=== PATIENT | male | born 1950 | race Caucasian/White ===

== ENCOUNTER 2023-10-10 12:37 | Outpatient (CLI) | payer MEDICARE, OTHER, SELFPAY ==
--- NOTE | ~2023-10-10 | PE_ITS ---
EXAMINATION: PET_PETPSMAST_PT DATE: 10/10/2023 15:16 INDICATION: Prostate cancer. TECHNIQUE: 8.659 mCi of piflufolastat F-18 was administered intravenously. Low dose computed tomograp hy (CT) images were acquired from the base of the brain to the proximal thighs for attenuation correc tion and anatomic localization. Automated exposure control was employed. Dose-length product (DLP) wa s 787 mGy-cm. Positron emission tomography (PET) images were acquired in the same distribution. COMPARISON: CT abdomen and pelvis 05/26/2016 FINDINGS: Head/neck: There is mucosal thickening in the paranasal sinuses. There are no pathologically enlarged lymph nodes. There is a 10 mm nodule in right thyroid lobe with maximum SUV of 6.0. Chest: There is no pneumonia or pleural effusion. The heart size is normal. There are coronary artery calcifications. There is mild bilateral gynecomastia. Abdomen/pelvis/proximal thighs: The liver, gallbladder, spleen, pancreas, adrenal glands, and kidneys are normal. The prostate is moderately enlarged. There is increased activity in the prostate with ma ximum SUV of 9.4. There are no dilated loops of bowel. There is calcified atherosclerosis of the aort a and many of the other arteries. There are no pathologically enlarged lymph nodes. There is no free intraperitoneal fluid. There is a left inguinal hernia containing fat. There is no osseous metastatic disease. IMPRESSION: 1. Moderately enlarged prostate with increased activity, consistent with primary malignancy. 2. 10 mm nodule in right lower lobe with increased activity. Isolated metastatic disease to the thyro id would be unusual. Ultrasound-guided fine needle aspiration is recommended. Reviewed, dictated and finalized at location A. [facility] IMMUNOLOGIST IMPRESSION: 1. Moderately enlarged prostate with increased activity, consistent with primar y malignancy. 2. 10 mm nodule in right lower lobe with increased activity. Isolated metastati c disease to the thyroid would be unusual. Ultrasound-guided fine needle aspira tion is recommended.
== END 2023-10-10 12:38 | disposition home or self-care (01) ==
PROVIDERS: PCP Internal Medicine; Visit Provider Urology
DX: C61 Malignant neoplasm of prostate (principal)
CPT/HCPCS: 78815; A9595

== ENCOUNTER 2025-04-23 07:54 | Outpatient (CLI) | payer MEDICARE, OTHER, SELFPAY ==
--- OUTSIDE RECORDS SUMMARY | 2000-01-02 11:15 | XMS_ITS | Continuity of Care Document ---
Author Organization [facility] Address [address] [place] [address] [address] [place] [address] Phone Care Team Providers Care Caponizer Name Role Phone Valentine Ash Unavailable Unavailable Advance Directives Directive Yes / No Effective Date File Name No Information Encounters Encounter Description Practice Location Reason(s) For Visit Diagnoses Date Provider Providers Copied on Encounter [facility], [address], [place], [place], [id number], [place] tel:[phone] [facility] No Information May-0 8-200 0 Nilsa Grijalva. [address] , [address], [place], [address], [place]. tel:[phone] Family History Family Member Type Diagnosis Age At Onset No Information Payers Payer name Insurance type Covered green party ID Authoriza tion(s) [employer] SOI CI [id number] Social History Type Description Quantity Date Captured Comments Sex Male Smoking Status No Information Chief Complaint And Reason For Visit No Information Reason For Referral Reason For Referral No Information History Of Present Illness Encounter Date Complaint History Of Prese nt Illness No Information Functional Status Date Functional Assessmen t No Information Instructions Date Instruction Additional Infor mation No Information Assessments Type Assessment Date No Information Patient Care Teams Name Effective Dates (start - stop) Status Members No Information
--- NOTE | ~2025-04-23 | CT_ITS ---
EXAMINATION: CT lung screening DATE: 04/23/2025 08:44 INDICATION: Personal history of nicotine dependence TECHNIQUE: Computed tomography (CT) of the chest was performed without intravenous contrast. The dose-length product was 135.98 mGy-cm. COMPARISON: PET/CT 10/10/2023; CT abdomen and pelvis 06/11/2011 FINDINGS: Stable 10 mm right thyroid lobe nodule. No enlarged mediastinal or hilar lymph nodes. Heart is unenlarged. There are coronary artery calcifications. Thoracic aorta is partially calcified but is not aneurysmal. Tracheobronchial tree is patent. No pneumothorax. No pleural effusion. No focal pulmonary consolidation. There are a few small reticular and bandlike opacities in the lower lungs likely atelectasis or scarring. Multilevel mild change in the visualized spine. IMPRESSION: 1. Lung-RADS category 2: Benign appearance or behavior. Continue annual screening with noncontrast low-dose chest CT in 12 months. 2. Stable 10 mm right thyroid nodule. Reviewed, dictated and finalized at location Q. IMPRESSION: 1. Lung-RADS category 2: Benign appearance or behavior. Continue annual screeni ng with noncontrast low-dose chest CT in 12 months. 2. Stable 10 mm right thyroid nodule.
--- NOTE | ~2025-04-23 | US_ITS ---
EXAMINATION: US aorta DATE: 04/24/2025 9:09 CDT INDICATION: Screening for aortic aneurysm. Hypertension. Diabetes. TECHNIQUE: Grayscale, color Doppler, and pulsed Doppler images of the aorta and common iliac arteries were obtained. COMPARISON: None. FINDINGS: The proximal aorta measures 1.9 cm greatest sagittal dimension. The mid aorta measures 2 cm greatest sagittal dimension. The distal aorta measures 1.9 cm greatest sagittal dimension. The right common internal iliac artery measures 1.5 cm. The left common iliac artery measures 1.4 cm. IMPRESSION: 1. Normal caliber aorta without aneurysm. Reviewed, dictated and finalized at location O.
--- OUTSIDE RECORDS SUMMARY | 2025-04-23 08:01 | XMS_ITS | Encounter Summary ---
Author Organization [facility] Address [address] [place] [address] Phone Care Team Providers Care Erp Pm Name Role Phone Ji Lou MD Primary Care Provider [phone] Encounter Details Date Type Department Care Team (Latest Contact Info) Description 06/09/2023 Orders Only [facility] Scanning, Provider Social History Tobacco Use Types Packs/Day Years Used Date Smoking Tobacco: Former Cigarettes 0.5 20 1 985 - 2005 Smokeless Tobacco: Never Alcohol Use Standard Drinks/Week Comments No 0 (1 standard drink = 0.6 oz pur e alcohol) AUDIT-C Answer Date Recorded Q1: How often do you have a drink containing alc ohol? Monthly or less 05/09/2022 Q2: How many drinks containi ng alcohol do you have on a typical day when you are drinking? 1 or 2 05/09/2022 Frequency of Binge Drinking Not on file 04/27 Personal Safety Answer Date Recorded Have you ever been in or are you currently in a harmful physical or emotional relationship or is someone making you feel afraid or unsafe? 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
--- OUTSIDE RECORDS SUMMARY | 2025-04-23 08:01 | XMS_ITS | Encounter Summary ---
Author Organization [facility] Address [address] [place] [address] Phone Care Team Providers Care Stone Driller Helper Name Role Phone Ji Lou MD Primary Care Provider Encounter Details Date Type Department Care Team (Latest Contact Info) Description 01/14/2025 Orders Only [facility] Scanning, Provider Social History Tobacco Use Types Packs/Day Years Used Date Smoking Tobacco: Former Cigarettes 0.5 20 1 985 - 2005 Passive Smoke Exposure: Past Smokeless Tobacco: Never Alcohol Use Standard Drinks/Week [...] on file 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 Gender Identity Male 05/15/2022 8:12 PM CDT Sexual Orientation Straight 05/15/2022 8: 12 PM CDT documented as of this encounter Plan of Treatment Not on file documented as of this encounter Procedures Procedure Name Priority Date/Time Associated Diagnosis Comments PROCEDURE - RESULT 01/14/2025 documented in this encounter Results * PROCEDURE - RESULT (01/14/2025) us Provider Scanning Final Result documented in this encounter Visit Diagnoses Not on filedocumented in this encounter Care Teams Stone Driller Helper Relationship Specialty Start Date End Date Ji Lou MD PCP - General 06/07/11 documented as of this encounter
--- OUTSIDE RECORDS SUMMARY | 2025-04-23 08:01 | XMS_ITS | Clinical Summary ---
Author Organization [facility] Address [address] [place] [address] Care Team Providers Care Sheep Shearer Name Role Phone Ji Lou MD Primary Care Provider Allergies No known active allergies Medications amLODIPine (NORVASC) 10 mg tablet Take 1 tablet (10 mg total) by mouth daily 04/17/20 22 Active escitalopram (LEXAPRO) 5 mg tablet Take 1 tablet (5 mg total) by mouth daily 03/09/20 22 Active carvediloL (COREG) 12.5 mg tablet TAKE 1 TABLET BY MOUTH TWICE DAILY IN THE MORNING AND AT BEDTIME 02/12/20 22 Active aspirin 81 mg enteric coated tablet Take 1 tablet (81 mg total) by mouth daily Active zinc 50 mg tablet Take by mouth Active furosemide (LASIX) 20 mg tablet Take 1 tablet (20 mg total) by mouth every morning 90 tablet 05/01/20 23 Active glucagon 1 mg kit Use as directed for low blood sugar. 1 kit 5 07/17/20 23 Active glucagon (Gvoke HypoPen 1-Pack) 1 mg/0.2 mL auto-injector Use as directed for hypoglycemia 2 mL 2 07/23/20 23 Active blood glucose diagnostic strip Test Blood glucose three times daily 100 strip 3 09/20/19 24 Active tirzepatide (Mounjaro) 7.5 mg/0.5 mL pen injector injection Inject 0.5 mL (7.5 mg total) under the skin every 7 days 2 mL 4 09/30/19 25 Active NovoLIN 70/30 100 unit/mL pen for injection Inject 10units w breakfast and 18 units with supper 15 mL 12/04/19 25 Active Additional Information Patient not taking.Reported on 01/28/2025 rosuvastatin (CRESTOR) 5 mg tabletIndications: Other hyperlipidemia Take 1 tablet (5 mg total) by mouth daily 90 tablet 1 12/17/19 25 026 Active ergocalciferol (VITAMIN D) 50,000 unit capsule Take 1 capsule (50,000 Units total) by mouth once a week 12 capsule 1 01/08/20 25 Active pen needle, diabetic 32 gauge x needle Use 2 times a day with insulin 100 each 01/15/20 Active canagliflozin-metf ormin (Invokamet XR) 150-500 mg tablet, IR & ER, biphasic 24hr Take 1 tablet by mouth 2 (two) times a day 180 tablet 01/29/20 25 Active lisinopriL (PRINIVIL,ZESTRIL) 40 mg tablet Take 1 tablet (40 mg total) by mouth daily 90 tablet 1 01/29/20 25 026 Active famotidine (PEPCID) 10 mg tablet Take 2 tablets (20 mg total) by mouth ultrasound technol before breakfast 30 tablet 01/29/20 25 Active insulin aspart protamine-insulin aspart 70/30 (NovoLOG 70/30 100 unit/mL) 100 unit/mL pen for injectionIndicatio ns:Type 2 diabetes mellitus with hyperglycemia, unspecified whether detention insulin use (HCC) Take 10 units for breakfast and 22 units in the evening 15 mL 03/03/20 25 Active Active Problems Problem Noted Date Diagnosed Date Type 2 diabetes mellitus with hyperglycemia 05/27 Enlarged thyroid 06/06/2024 Positive colorectal cancer screening using Colog uard test 02/07/2023 Hypercalcemia 01/10/2014 Overview (12/02/2016): HYPERCALCEMIA Hyperparathyroidism 06/10/2011 Overview (11/29/2016): HYPERPARATHYROIDISM NOS Encounters Date Type Department Care Team Description 03/03/2025 Orders Only [facility] Medicine Endocrinology Metabolism and Lipid [address] [place] [address] [place] [address] OliverDonovan mooreelleALESSIO Type 2 diabetes mellitus with hyperglycemia, unspecified whether dedicated intermodal truck driver insulin use (HCC) 01/28/2025 10:00 AM CDT Office Visit [facility] Medicine Endocrinology Metabolism and Lipid [address] [place] [address] Britany Lozano NP Type 2 diabetes mellitus with hyperglycemia, with long-term current use of insulin (HCC) (Primary Dx); Enlarged thyroid; Hypercalcemia from Last 3 Months Surgical History Surgery Date Site/Laterality Comments INGUINAL HERNIA REPAIR 08/27/1987 - 08/26/1988 Right COLONOSCOPY 5-6 yrs ago COLONOSCOPY COLONOSCOPY 02/12/2023 Medical History Medical History Date Comments Type 2 diabetes mellitus Diabete s type 2 Hypertension Hypertension Depression Sleep apnea Family History Medical History Relation Name Comments Colon cancer Father Hypertension Father Stroke Father Diabetes type II Maternal Grandmother Diabetes type II Mother Hypertension Mother Diabetes type II Sister Relation Name Status Comments Father Maternal Grandmother Mother Sister Alive Social History Tobacco Use Types Packs/Day Years [...] on file Legal 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 Gender Identity Male 05/15/2022 8:12 PM CDT Sexual Orientation Straight 05/15/2022 8: 12 PM CDT Obstetrics History Last Filed Vital Signs Vital Sign Reading Time Taken Comments Blood Pressure 142/81 01/28/2025 9:56 AM CDT Pulse 71 01/28/2025 9:56 AM CDT Temperature 36.8 C (98.2 F) 01/28/2025 9:56 AM CDT Respiratory Rate 18 02/12/2023 1:05 PM CDT Oxygen Saturation 100% 01/28/2025 9:56 AM CDT Inhaled Oxygen Concentration - - Weight 87.8 kg (193 lb 8 oz) 01/28/2025 9:56 AM CDT Height 180.3 cm (5' 11) 01/28/2025 9:56 AM CDT Body Mass Index 26.99 01/28/2025 9:56 AM CDT Plan of Treatment Health Maintenance Due Date Last Done Comments Depression Screening 1950 Hepatitis C Screening 1950 Dilated Eye Exam 1950 Foot Exam 1950 DTaP/Tdap/Td Vaccine (1 - Tdap) 02/24/1963 Hepatitis B Screening 02/24/1970 Pneumococcal vaccine 65+ (2 of 2 - PCV) 08/14/2013 08/14/2012 Zoster Vaccine (2 of 3) 12/09/2013 10/14/2013 Abdominal Aortic Aneurysm (A AA) Screen 02/24/2017 Well Visit 65+ 02/24/2017 Fall Risk Assessment 02/13/2024 02/12/2023 Covid-19 Vaccine (3 - 2023-2 5 season) 2024 06/06/2021, 11/19/2020 Influenza Vaccine (#1) 2025 06/23/2012 Hemoglobin A1C 07/30/2025 01/28/2025, 02/0 11/2024, 06/06/2024, Additional history exists Albumin Creatinine Ratio, Urine 08/15/2025 , 08/22/2023 Lipid Panel 08/15/2025 08/15/2024, 07/28, 01/18/2023 eGFR 08/15/2025 08/15/2024, 07/28, 01/18/2023 Colon Cancer Screening-Colonoscopy 02/12/20332022 Procedures Procedure Name Priority Date/Time Associated Diagnosis Comments POCT HEMOGLOBIN A1C Routine 01/28/2025 1 0:11 AM CDT Type 2 diabetes mellitus with hyperglycemia, with long-term current use of insulin (HCC) COMPREHENSIVE METABOLIC PANEL Routine 08/15/2024 8:45 AM TECHNICAL SUPPORT ANALYST Type 2 diabetes mellitus with hyperglycemia, unspecified whether detention insulin use (HCC) LIPID PANEL Routine 08/15/2024 8:45 AM TECHNICAL SUPPORT ANALYST Type 2 diabetes mellitus with hyperglycemia, unspecified whether dedicated intermodal truck driver insulin use (HCC) ALBUMIN CREATININE RATIO, URINE Routine 08/15/2024 8:45 AM TECHNICAL SUPPORT ANALYST Type 2 diabetes mellitus with hyperglycemia, unspecified whether dedicated intermodal truck driver insulin use (HCC) COLONOSCOPY 02/12/2023 10:55 AM CDT from Last 3 Months or Most Recently Relevant to Health Maintenance Results * (ABNORMAL) POCT hemoglobin A1c (01/28/2025 10:11 AM CDT) Hemoglobin A1C, POC 6.4(A) 4.0 - 5.6 % Blood 01/28/2025 10:1 1 AM CDT Britany Lozano NP POINT OF CARE TEST ORDERAB LES Final Result * (ABNORMAL) Albumin Creatinine Ratio, Urine (08/15/2024 8:45 AM TECHNICAL SUPPORT ANALYST) Creatinine, ur 22 20 - 320 mg/dL [facility] Microalbumin, ur 0.9 See Note: mg/dL [facility] Comment: Reference Range: Reference Range Not established Microalbumin/creat ratio 41(H) <30 mg/g creat [facility] Comment: The ADA defines abnormalities in albumin excretion as follows: Albuminuria Category Result (mg/g creatinine) Normal to Mildly increased <30 Moderately increased 30-299 Severely increased > OR = 300 The ADA recommends that at least two of three specimens collected within a 3-6 month period be abnormal before considering a patient to be within a diagnostic category. Urine 08/15/2024 8:45 AM TECHNICAL SUPPORT ANALYST 08/15/2024 8:45 AM TECHNICAL SUPPORT ANALYST Josefinard Mayfieldtina Kapoor DO LAB URINE ORDERABLES Fi nal Result Performing Organization Address [facility]/ZIP Co de Phone Number DANIELLE [facility] [address] [place] [address] * Lipid panel (08/15/2024 8:45 AM TECHNICAL SUPPORT ANALYST) Cholesterol 152 <200 mg/dL [facility] HDL 76 > OR = 40 mg/dL [facility] Triglycerides 111 <150 mg/dL [facility] LDL 57 mg/dL (calc) [facility] Comment: Reference range: <100 Desirable range <100 mg/dL for primary prevention; <70 mg/dL for patients with CHD or diabetic patients with > or = 2 CHD risk factors. LDL-C is now calculated using the Cruz calculation, which is a validated novel method providing better accuracy than the Friedewald equation in the estimation of LDL-C. Darrel SIMENTAL et al. ANTHONY. 2013;310(19): 9359-1379 (http://education.RiverOne/faq/YDN129) Chol/HDL ratio 2.0 <5.0 (calc) [facility] Non-HDL, (LDL+VLDL) 76 <130 mg/dL (calc) [facility] Comment: For patients with diabetes plus 1 major ASCVD risk factor, treating to a non-HDL-C goal of <100 mg/dL (LDL-C of <70 mg/dL) is considered a therapeutic option. Blood 08/15/2024 8:45 AM TECHNICAL SUPPORT ANALYST 08/15/2024 8:45 AM TECHNICAL SUPPORT ANALYST Josefina Kapoor DO LAB BLOOD ORDERABLES Fi nal Result Performing Organization Address [facility] Co de Phone Number [facility] [address] [address] [address] * (ABNORMAL) Comprehensive metabolic panel (08/15/2024 8:45 AM TECHNICAL SUPPORT ANALYST) Glucose 146(H) 65 - 99 mg/dL [facility] Comment: Fasting reference interval For someone without known diabetes, a glucose value >125 mg/dL indicates that they may have diabetes and this should be confirmed with a follow-up test. BUN 16 7 - 25 mg/dL [facility] Creatinine 1.15 0.70 - 1.28 mg/dL [facility] eGFR 68 > OR = 60 mL/min/1.7 3m2 [facility] BUN/creat ratio SEE NOTE: 6 - 22 (calc) [facility] Comment: Not Reported: BUN and Creatinine are within reference range. Sodium 141 135 - 146 mmol/L [facility] Potassium, pl 4.4 3.5 - 5.3 mmol/L [facility] Chloride 104 98 - 110 mmol/L [facility] CO2 28 20 - 32 mmol/L [facility] Calcium 11.7(H) 8.6 - 10.3 mg/dL [facility] Protein, sr 8.0 6.1 - 8.1 g/dL [facility] Albumin 5.0 3.6 - 5.1 g/dL [facility] GLOBULIN 3.0 1.9 - 3.7 g/dL (calc) [facility] Alb/glob ratio 1.7 1.0 - 2.5 (calc) [facility] Bilirubin, total 0.7 0.2 - 1.2 mg/dL [facility] Alk phos 85 35 - 144 U/L [facility] AST 25 10 - 35 U/L [facility] ALT (SGPT) 28 9 - 46 U/L [facility] Blood 08/15/2024 8:45 AM TECHNICAL SUPPORT ANALYST 08/15/2024 8:45 AM TECHNICAL SUPPORT ANALYST us Josefina Kapoor DO LAB BLOOD ORDERABLES Fi nal Result [facility] [address] [address] [place] [address] * COLONOSCOPY (02/12/2023 10:55 AM CDT) Anatomical Region Laterality Modality Other Narrative Procedure Note Andres Harman MD - 02/12/2023 10:55 AM CDT [facility] Patient Name: Cody Hensley Procedure Date: 02/12/2023 10:55 AM Date of : 1950 Admit Type: Outpatient Age: 72 Gender: Male Attending MD: Andres Harman M.D. Room: [facility] 2 Note Status: Finalized Patient Profile: Refer to note in patient chart for documentation of history and physical. Procedure: Colonoscopy Indications: Family history of colon cancer in a first-degree relative before age 60 years, Last colonoscopy 5years ago, Positive Cologuard test Referring MD: Ji Lou M.D. Providers: Andres Harman M.D. Impression: - Hemorrhoids found on perianal exam. - The entire examined colon is normal. - No specimens collected. Recommendation: - Discharge patient to home. - Resume previous diet. - Continue present medications. - Repeat colonoscopy in 5 years for surveillance. - Return to primary care physician as previously scheduled. Medicines: Propofol per Anesthesia Complications: No immediate complications. Estimated Blood Loss: Estimated blood loss: none. Procedure: Pre-Anesthesia Assessment: - This assessment was completed [Time ofAssessment] prior to the administration of sedation. The benefits, risks and alternatives of theprocedure and sedation were discussed and informed consentwas obtained. All questions were answered. Please referto the signed informed consent document in the medical record. The bowel preparation used was Miralax via single dose instruction. The bowel preparation used was bisacodyl tablets via single dose instruction.The scope was passed under direct vision. TheColonoscope [id number] was introduced through the anus and advanced to the the cecum, identified by appendiceal orifice and ileocecal valve. The colonoscopy was performed without difficulty. The patient tolerated the procedure well. The qualityof the bowel preparation was adequate to identifypolyps 6 mm and larger in size. The ileocecal valve, appendiceal orifice, and rectum werephotographed. Findings: Hemorrhoids were found on perianal exam. The colon (entire examined portion) appeared normal. Electronically signed by Andres Harman M.D. Andres Harman M.D. 02/12/2023 12:28:43 PM Number of Addenda: 0 Note Initiated On: 02/12/2023 10:55 AM Procedure Code(s): --- Professional --- 90143, Colonoscopy, flexible; diagnostic, including collection of specimen(s) by brushing or washing, when performed (separateprocedure) --- Technical --- 33974, Colonoscopy, flexible; diagnostic, including collection of specimen(s) by brushing or washing, when performed (separateprocedure) Diagnosis Code(s): --- Professional --- R19.5, Other fecal abnormalities Z80.0, Family history of malignant neoplasm of digestive organs K64.9, Unspecified hemorrhoids --- Technical --- R19.5, Other fecal abnormalities Z80.0, Family history of malignant neoplasm of digestive organs K64.9, Unspecified hemorrhoids CPT copyright 2020 [employer]. All rights reserved. The codes documented in this report are preliminary and upon sheet cutter reviewmay be revised to meet current compliance requirements. Recognized by the [employer] for promoting quality in endoscopy Andres Harman MD ENDOSCOPY PROCEDURES Final Re sult from Last 3 Months or Most Recently Relevant to Health Maintenance Insurance MEDICARE [facility] Address: [address] [address] COMMERCIAL GENERIC MEDICARE LOCAL [facility] [facility] [place] [facility] SUPPLEMENT MEDICARE Advance Directives For more information, please contact: [phone] * Full Code (Latest Code Status on File) Date Activated Date Inactivated Comments 02/12/2023 10:03 AM 02/12/2023 5:35 PM * Full Code Date Activated Date Inactivated Comments 02/12/2023 10:03 AM 02/12/2023 10:03 AM Care Teams Sheep Shearer Relationship Specialty Start Date End Date Ji Lou MD PCP - General 06/07/11
--- OUTSIDE RECORDS SUMMARY | 2025-04-23 08:01 | XMS_ITS | Encounter Summary ---
Author Organization 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 Gender Identity Male 05/15/2022 8:12 PM CDT Sexual Orientation Straight 05/15/2022 8: 12 PM CDT documented as of this encounter Plan of Treatment Not on file documented as of this encounter Procedures Procedure Name Priority Date/Time Associated Diagnosis Comments SCAN - LABS 06/10/2022 documented in this encounter Results * SCAN - LABS (06/10/2022) us Provider Scanning Final Result documented in this encounter Visit Diagnoses Not on filedocumented in this encounter Care Teams Surfboard Maker Relationship Specialty Start Date End Date Ji Lou MD PCP - General 06/07/11 documented as of this encounter
--- OUTSIDE RECORDS SUMMARY | 2025-04-23 08:01 | XMS_ITS | Clinical Summary ---
Author Organization [facility] Address [address] [place] [id number] Care Team Providers Care Scientist/Engineer Name Role Phone None, Provider Primary Care Provider Unavaila ble Social History Tobacco Use Types Packs/Day Years Used Date Smoking Tobacco: Former Sex and Gender Information Value Date Recorded Sex Assigned at Not on file Legal Sex Male 9:59 PM CDT Gender Identity Not on file Sexual Orientation Not on file Last Filed Vital Signs Vital Sign Reading Time Taken Comments Blood Pressure 126/70 02/05/2015 2:58 PM CDT Pulse 66 02/05/2015 2:57 PM CDT Temperature - - Respiratory Rate 18 02/05/2015 2:57 PM CDT Oxygen Saturation - - Inhaled Oxygen Concentration - - Weight 95.3 kg (210 lb) 02/05/2015 2:57 PM CDT Height 177.8 cm (5' 10) 02/05/2015 2:57 PM CDT Body Mass Index 30.13 02/05/2015 2:57 PM CDT Plan of Treatment Health Maintenance Due Date Last Done Comments Colorectal Cancer Screening Colonoscopy (10 Years) 1950 Hepatitis C 02/24/1970 DTaP, Tdap and Td Vaccines ( 1 - Tdap) 02/24/1971 Pneumococcal Vaccine: 50+ Ye ars (1 of 1 - PCV) 02/24/2002 Zoster Vaccines (2 of 3) 12/09/2013 10/14/2013 Annual Medicare Wellness Visit 02/24/2017 COVID-19 Vaccine (1 - 2023-2 5 season) 2024 RSV Immunization or 60+ Years (1 - 1-dose 75+ series) 02/24/2027 Meningococcal B Vaccine Aged Out No l onger eligible based on patient's age to complete this topic Meningococcal Vaccine Aged Out No rogelio victor hugo eligible based on patient's age to complete this topic RSV Immunizations Under 20 Months Aged Out No longer eligible based on patient's age to complete this topic Insurance MEDICARE Care Teams Scientist/Engineer Relationship Specialty Start Date End Date None, Provider, PCP - General 05/29/19
== END 2025-04-23 07:55 | disposition home or self-care (01) ==
LOC: CHSIMG 07:59
PROVIDERS: PCP Internal Medicine
DX: Z12.2 Encounter for screening for malignant neoplasm of respiratory organs (principal); Z87.891 Personal history of nicotine dependence; E04.1 Nontoxic single thyroid nodule
CPT/HCPCS: 71271; 76775